=== PATIENT | male | born 1980 | race American Indian/Alaskan Native ===

== ENCOUNTER 2024-01-01 15:54 | Emergency (ER) | payer MEDICAID, OTHER, SELFPAY ==
[2024-01-01] VITALS (13 sets, daily range): BP systolic 101–132; BP diastolic 55–84; PULSE 68–87; RESP 14–30; TEMP 36.9; O2SAT 97–100
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
--- NOTE | 2024-01-01 16:04 | EKG_ITS ---
[place] [id number] [place] [id number] Test Date: 2024-01-01 Pat Name: Wilman Smith Department: [facility] Room: Gender: Male Chuck Tender: BAILEE : 1980 Requested By: Order Number: [id number] Reading MD: Kareem Peterson Measurements Intervals [place] Rate: 80 P: 48 IA: 160 QRS: 26 QRSD: 86 T: 47 QT: 380 QTc: 438 Interpretive Statements Normal sinus rhythm Electronically Signed On 01-02-2024 8:13:35 PDT by Kareem Peterson
[2024-01-01] MEDS: ONDANSETRON 4 MG/2 ML INJ IV (16:05)
[2024-01-01 16:12] LABS: Add Manual Diff / Slide Review NO; Basophils Absolute Auto 100 /uL (0-100); Basophils Percent Auto 0.8 % (0-2); Eosinophils Absolute Auto 100 /uL (0-450); Eosinophils Percent Auto 1.3 % (2-4); Hemoglobin 11.9 g/dL (13.5-17.5); Lymphocytes Absolute Auto 2400 /uL (1100-4500); Lymphocytes Percent Auto 27.1 % (25-40); Mean Corpuscular HGB Conc 33.9 % (30-36); Mean Corpuscular Hemoglobin 28.8 PG (26-34); Mean Corpuscular Volume 84.8 fL (80-100); Monocytes Absolute Auto 500 /uL (0-900); Monocytes Percent Auto 5.3 % (3-14); Neutrophils Absolute Auto 5900 /uL (1500-7000); Neutrophils Percent Auto 65.5 % (50-75); Platelet Count 304 X10^3/uL (150-400); Red Blood Cell Count 4.12 X10^6/uL (4.5-5.9); Red Cell Distribution Width 15.4 % (11.6-14.8)
[2024-01-01 16:17] LABS: Appearance Urine UA CLEAR; Bilirubin Urine UA NEGATIVE (NEGATIVE); Color Urine UA YELLOW; Glucose Urine UA NEGATIVE (Negative); Ketones Urine UA NEGATIVE (NEGATIVE); Leukocyte Esterase Urine UA NEGATIVE (NEGATIVE); Nitrite Urine UA NEGATIVE (Negative); Occult Blood Urine UA NEGATIVE (Negative); Protein Urine UA NEGATIVE (Negative); Urobilinogen Urine UA 0.2 E.U./dL (0.2); pH Urine UA 6.5 (4.5-8.0)
[2024-01-01 16:17] LABS: Prothrombin Time 11.8 SECONDS (9.4-12.5)
[2024-01-01 16:20] LABS: Lactate (Lactic Acid) 1.6 mmol/L (0.7-2.1); PTT Partial Thromboplastin Tim 30 SECONDS (25.1-36.5)
[2024-01-01] MEDS: TET,DIPH,PERTUSS(ACELL),VAC/PF 0.5 ML SYRINGE IM (16:21)
[2024-01-01 16:22] LABS: Alanine Aminotransferase 16 IU/L (<50); Albumin 3.7 g/dL (3.5-5.0); Albumin Globulin Ratio 1.2 (1.0-2.8); Alkaline Phosphatase 105 U/L (38-126); Aspartate Aminotransferase 28 IU/L (17-59); BUN Creatinine Ratio 12.9 (6-22); Bilirubin Total 0.4 mg/dL (0.2-1.3); Blood Urea Nitrogen 9 mg/dL (9-20); Calcium 7.8 mg/dL (8.4-10.2); Carbon Dioxide 25 mmol/L (22-32); Chloride 108 mmol/L (98-107); Estimated Glomerular Filt Rate > 60 mL/min (>60); Ethanol (ETOH) 284 mg/dL; Glucose 100 mg/dL (70-100); HEMOLYSIS < 15 (0-50); Lipase 115 U/L (23-300); Potassium 3.3 mmol/L (3.4-5.1); Sodium 142 mmol/L (137-145); Total Protein 6.7 g/dL (6.3-8.2)
[2024-01-01] MEDS: SODIUM CHLORIDE 0.9% 1,000 ML 1000 ML IV (16:24)
[2024-01-01 16:32] LABS: Ur Creatinine Normal (Normal); Ur Specific Gravity Normal (Normal); Urine Cocaine Negative (Negative); Urine Tetrahydrocannabinol Positive (Negative); Urine pH Normal (Normal)
[2024-01-01] MEDS: POTASSIUM CHLORIDE IN WATER 10 MEQ/100 ML PIGGYBACK 100 MEQ IV ×2 (16:32→17:38)
[2024-01-01 16:33] LABS: UR Morphine/Opiate cutoff 300 Negative (Negative); Urine Amphetamines Negative (Negative); Urine Barbiturates Negative (Negative); Urine Benzodiazepines Negative (Negative); Urine MDMA Negative (Negative); Urine Methamphetamines Positive (Negative); Urine Phencyclidine Negative (Negative)
[2024-01-01 16:34] LABS: Urine Methadone Negative (Negative); Urine Oxycodone Negative (Negative); Urine Tricyclic Antidepressant Negative (Negative)
[2024-01-01 16:40] LABS: Bacteria Urine None Seen; RBC Urine None Seen (0-5/HPF); Squamous Epithelial Cell Urine None Seen (0-5/HPF); Urine Volume 10mL (spun); WBC Urine None Seen (0-5/HPF)
[2024-01-01 16:41] LABS: Culture Indicated Urine Cult Not Indicated
--- NOTE | 2024-01-01 16:43 | PC.NURSE ---
Granted permission from patient to speak to sister Maren. Advised pt is allergic to iodine and codeine. Pt already received CT scan with contrast and hernández insertion with iodine antiseptic. No allergic reaction noted at this time.
[2024-01-01 16:45] LABS: Magnesium 2.1 mg/dL (1.6-2.3)
[2024-01-01 18:22] LABS: Ethanol (ETOH) 240 mg/dL
--- NOTE | 2024-01-01 18:43 | PC.NURSE ---
PT in bed in the room stating his lady was just here with me, where did she go doc? I redirected pt to rest as he states he is tired. Pt repeating Babe, take me home. Call light at bedside.
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
== END 2024-01-01 20:10 | disposition home or self-care (01) ==
PROVIDERS: Emergency Provider Emergency Medicine
DX: F10.129 Alcohol abuse with intoxication, unspecified (principal); Y90.8 Blood alcohol level of 240 mg/100 ml or more; S29.9XXA Unspecified injury of thorax, initial encounter; S19.9XXA Unspecified injury of neck, initial encounter; S09.90XA Unspecified injury of head, initial encounter; Z23 Encounter for immunization; V89.2XXA Person injured in unspecified motor-vehicle accident, traffic, initial encounter
CPT/HCPCS: 36415; 70450; 71275; 72125; 74177; 80053; 80305; 80320; 81001; 82962; 83605; 83690; 83735; 85025; 85610; 85730; 86850; 86900; 86901; 90471; 93005; 96361; 96374; 99285; 90715; J2405; Q9967